=== PATIENT | female | born 1955 | race Caucasian/White ===

== ENCOUNTER 2021-07-10 16:10 | Emergency (ER) | payer BC, MEDICARE ==
[2021-07-10 17:29] LABS: ACETAMINOPHEN 0 ug/mL (10-30)
[2021-07-10 18:05] LABS: CORONAVIRUS COVID-19 NAA NEGATIVE (NEGATIVE)
[2021-07-10] MEDS ORDERED: QUEtiapine 25 MG Tab PO ONE (18:44)
== END 2021-07-10 20:59 | disposition home or self-care (01) ==
LOC: JD.ED 16:10
DX: R44.3 Hallucinations, unspecified (principal); Z20.822 Contact with and (suspected) exposure to COVID-19
CPT/HCPCS: 0240U; 36415; 70450; 80053; 80143; 80179; 80306; 80307; 81003; 82607; 82746; 83735; 84443; 85025; 93005; 99285; A9270; 93010

== ENCOUNTER 2021-07-21 05:19 | Emergency (ER) | payer MEDICARE ==
[2021-07-21 06:39] LABS: ACETAMINOPHEN 4 ug/mL (10-30)
[2021-07-21] MEDS ORDERED: Acetaminophen 325 MG Tab PO ONE (15:35)
== END 2021-07-21 17:00 ==
LOC: JD.ED 05:19
DX: F29 Unspecified psychosis not due to a substance or known physiological condition (principal); Z88.1 Allergy status to other antibiotic agents; Z91.048 Other nonmedicinal substance allergy status; Z28.310 Unvaccinated for COVID-19; Z20.822 Contact with and (suspected) exposure to COVID-19
CPT/HCPCS: 36415; 70551; 80053; 80143; 80179; 80306; 80307; 81001; 84443; 85025; 93005; 99285; A9270; U0002; 93010; 99284